=== PATIENT | female | born 1970 | race Two or more races ===

== ENCOUNTER 2022-10-18 07:26 | Outpatient (CLI) | payer OTHER, SELFPAY | END 2022-10-18 07:27 | disposition home or self-care (01) | LOC: NFLDREF 10-20 07:38 | PROVIDERS: PCP Internal Medicine; Referring Provider Internal Medicine; Visit Provider Internal Medicine | DX: Z00.00 Encounter for general adult medical examination without abnormal findings (principal); E03.8 Other specified hypothyroidism; E28.39 Other primary ovarian failure | CPT/HCPCS: 80048; 84439; 84443; 84481 ==

== ENCOUNTER 2023-01-04 15:15 | Outpatient (CLI) | payer OTHER, SELFPAY ==
--- NOTE | 2023-01-04 15:20 | CRLHL7_ITS ---
For Patients: As a result of the Century Cures Act, medical imaging exams and procedure reports are released immediately into your electronic medical record. You may view this report before your referring provider. If you have questions, please contact your health care provider. BILATERAL SCREENING MAMMOGRAM WITH COMPUTER-AIDED DETECTION TECHNIQUE: CC and MLO views were obtained. These mammographic images have been obtained using full-field digital technique. These mammographic images were interpreted with the benefit of computer-aided detection. COMPARISON FILM: 12/08/21, 10/21/20, 09/01/18. FINDINGS: The breasts are heterogeneously dense, which may obscure small masses IMPRESSION: There is no radiographic evidence for malignancy. ASSESSMENT: BI-RADS Category 2: Benign RECOMMENDATION: Routine screening mammogram in 1 year. A lay language report of this examination will be provided to the patient. Peter Lopez M.D. Diagnostic Radiologist [email or web address]/[email or web address] Transcribed: 3:13 p.mikey cope/Dictated by: Peter Lopez MD @ 01/07/2023 8:16:00 AM (Electronically Signed)
== END 2023-01-04 15:16 | disposition home or self-care (01) ==
LOC: MAMMO 15:16
PROVIDERS: PCP Internal Medicine; Visit Provider Internal Medicine
DX: Z12.31 Encounter for screening mammogram for malignant neoplasm of breast (principal); R92.2 Inconclusive mammogram
CPT/HCPCS: 77067

== ENCOUNTER 2023-10-25 09:45 | Outpatient (CLI) | payer OTHER, SELFPAY ==
--- OUTSIDE RECORDS SUMMARY | 2023-10-30 12:51 | XMS_ITS | Clinical Summary ---
Author Name Unknown Organization [place] Address [address] [place] [address] Care Team Providers Care Director Hr Communications Name Role Phone Eva Nelson MD Primary Care Provider [phone] Allergies Active Allergy Reactions Criticality Noted Date Comments Metronidazole Other (See Comments) 01/31/2016 Throat swelling/closing Lansoprazole Rash Low 01/31/2016 No Clinical Screening - See Comments 01/31/2016 Nitroimidazoles Seasonal Allergies Cough 02/24/2008 Throat tightness Medications Medication Sig Dispensed Refills Start Date End Date Status LEVOTHYROXINE SODIUM PO Take 50 mcg by mouth Active LEVOTHYROXINE SODIUM PO Take 75 mcg by mouth Active MEDROXYPROGESTERONE ACETATE PO Take 2.5 mg by mouth Active ESTRADIOL PO Take 1 mg by mouth Active cholecalciferol (D 5000) 5000 units CAPS Take 5,000 Units by mouth 10/29/2014 Active Active Problems No known active problems Social History Tobacco Use Types Packs/Day Years Used Date Smoking Tobacco: Never Smokeless Tobacco: Never Alcohol Use Standard Drinks/Week Comments No 0 (1 standard drink = 0.6 oz pur e alcohol) Adolescent Education Answer Date Record ed Getting School Help Needed Not on file 03/22 Sex and Gender Information Value Date Recorded Sex Assigned at Not on file Gender Identity Not on file Sexual Orientation Not on file Last Filed Vital Signs Vital Sign Reading Time Taken Comments Blood Pressure 112/80 04/14/2018 1:25 PM CDT Pulse - - Temperature - - Respiratory Rate - - Oxygen Saturation - - Inhaled Oxygen Concentration - - Weight 59.9 kg (132 lb) 04/14/2018 1:25 PM CDT Height 154.9 cm (5' 1) 04/14/2018 1:25 PM CDT Body Mass Index 24.94 04/14/2018 1:25 PM CDT Plan of Treatment Not on file Procedures Procedure Name Priority Date/Time Associated Diagnosis Comments ABSTRACT HPV ([facility] EXTERNAL RESULT) Routine 04/12/2016 HCL PAP SMEAR Routine 11/23/1998 1:18 PM CDT Gynecologic Examination from Last 3 Months or Most Recently Relevant to Health Maintenance Results * ABSTRACT HPV-NO CHARGE (04/12/2016) HPV Abstract See Scanned Document [facility] 04/12/2016 [facility]ative [facility] - 04/12/2016 Please abstract the following data from this visit with this patient into the appropriate field in Epic: Pap smear & HPV done on this date: 04/12/16 (approximately), by this group: Giuliana, results were negative, HPV-. Results on Care everywhere. Provider Outside LAB - [facility] EXTERNAL R ESULT [facility] [address] * PAP SMEAR (11/23/1998 1:18 PM CDT) Unlabelled DNR [facility] Biopsy Sent DNR [facility] Source VAG,CERV,E NDOCERV [facility] LMP POST [facility] PARA 3 [facility] 2 [facility] Clinical History DNR [facility] Therapy DNR [facility] Last Pap Diagnosis WITHIN NORMAL LIMITS [facility] PAP Date [id number] [facility] Specimen # DNR [facility] Tissue DNR [facility] Tissue Date DNR [facility] Statement of Adequacy [facility] Comment: SATISFACTORY FOR INTERPRETATION POST MENOPAUSAL PATIENT. ??NO ENDOCERVICAL CELLS SEEN. General Categorization DNR [facility] Descriptive Diagnosis [facility] Comment: WITHIN NORMAL LIMITS ATROPHIC CELL PATTERN Recommendations DNR [facility] DNR 114,,,,,, [facility] DNR DNR [facility] DNR DNR [facility] DNR DNR [facility] . [facility] Comment: ?PAP SMEARS ARE SUBJECT TO BOTH FALSE NEGATIVE AND FALSE ? POSITIVE RESULTS EVIDENCED BY DATA PUBLISHED IN THE ? MEDICAL LITERATURE. ??YOUR PATIENT'S RESULT SHOULD BE ? INTERPRETED IN THIS CONTEXT, TOGETHER WITH THE PATIENT'S ? HISTORY AND CLINICAL FINDINGS. TESTING LOCATION ? THIS TEST [facility] PERFOR[facility] AT [facility] ? [address] [facility]. [id number] ? PHONE NUMBERS FOR CYTOLOGY INQUIRES, INCLUDING SLIDE REQUESTS ? EXT. [phone] ?? EXT. [phone] 11/21/1998 Elsie Ferrari MD LABORATORY [facility] from Last 3 Months or Most Recently Relevant to Health Maintenance Care Teams Director Hr Communications Relationship Specialty Start Date End Date Eva Nelson MD [facility] [address] [place] [address] PCP - General Internal Medicine 04/14/18
--- OUTSIDE RECORDS SUMMARY | 2023-10-30 12:51 | XMS_ITS | Clinical Summary ---
Author Name Unknown Organization [employer] [facility] Address [place], [place] [address] Care Team Providers Care Buffer Nickel Name Role Phone Osorio Gonzalez MD Primary Care Provider U Arik Israel MD Unavailable Diego Diaz MD Unavailable Unavailabl e Allergies Active Allergy Reactions Criticality Noted Date Comments Nitroimidazoles Cough 02/24/2008 Throat tightness Metronidazole Hcl Cough,Throat Swelling/Closing 01/07/2009 Lansoprazole Rash 12/22/2007 Medications Medication Sig Dispensed Refills Start Date End Date Status cycloSPORINE (RESTASIS) 0.05 % ophthalmic emulsion 1 Drop every 12 hours. 0 05/27/2013 Active tretinoin 0.1 % creamIndications:Oth er acne APPLY TO FACE AT BEDTIME FOR ACNE 45 g 3 11/06/2013 Active cholecalciferol (VITAMIN D3) 5,000 unit capsuleIndications:V itamin D deficiency Take 1 capsule by mouth once daily. 90 capsule 3 10/29/2014 Active meclizine (ANTIVERT) 25 mg tabletIndications:Ve rtigo Take 1 tablet by mouth 3 times daily if needed. 30 tablet 1 05/11/2015 Active medroxyPROGESTERone (PROVERA) 2.5 mg tabletIndications:Sy mptomatic menopausal or female climacteric states TAKE ONE TABLET BY MOUTH EVERY DAY 90 tablet 0 02/27/2016 Active estradiol (ESTRACE) 1 mg tabletIndications:Sy mptomatic menopausal or female climacteric states TAKE ONE TABLET BY MOUTH EVERY DAY 90 tablet 0 02/27/2016 Active levothyroxine (SYNTHROID) 75 mcg tabletIndications:Hy pothyroidism, unspecified type TYAJE 1 TABLET ON SATURDAY, SATURDAY, AND SATURDAY. 40 tablet 0 02/27/2016 Active levothyroxine (SYNTHROID) 50 mcg tabletIndications:Hy pothyroidism, unspecified type TAKE 1 TABLET EVERY SATURDAY, SATURDAY, SATURDAY, AND SATURDAY. 50 tablet 0 02/27/2016 Active triamterene-hydrochl orothiazide, 37.5-25 mg, (MAXZIDE-25) 37.5-25 mg tabletIndications:Ed raul TAKE ONE TABLET BY MOUTH EVERY OTHER DAY FOR SWELLING 15 tablet 05/25/2016 Active Active Problems Problem Noted Date Diagnosed Date Premature menopause 02/05/2014 Adjustment disorder with mixed anxiety and depre ssed mood 01/14/2014 Vitamin D deficiency 04/16/2013 Zoster 04/01/2013 Overview: Left vulvar Abnormal head MRI 03/03/2013 Unspecified hypothyroidism 02/25/2013 Pituitary microadenoma 05/10/2009 Overview: On MRI 04/08 Needs recheck in September 2012 Symptomatic menopausal or female climacteric sta orestes 04/21/2009 Benign neoplasm of pituitary gland and craniopharyngeal duct (pouch) 04/21/2009 Osteopenia 04/19/2009 Overview: No significant change from 2010 to 2013 Recheck in 3-5 years Edema 11/09/2008 Esophageal reflux 11/04/2007 Oral aphthae 08/13/2007 Other acne 01/17/2007 Allergic rhinitis, cause unspecified 01/17/2007 Other specified gastritis without mention of hem orrhage 09/12/2006 Resolved Problems Problem Noted Date Diagnosed Date Resolved Date Trigeminal neuralgia 01/17/2007 009 Immunizations Name Administration Dates Next Due MMR 09/02/2015 Td, Preservative Free (age >= 7 Years) 6 Tdap 01/21/2006 Family History Medical History Relation Name Comments Diabetes Brother Cancer Father d 79 yo lungCA/ asbestos Diabetes Father Arthritis Mother B~1930 Hypertension Mother B~1930 b 1930 Psychiatric illness Mother B~1930 depressi on Diabetes Sister 5 Heart Disease Sister 5 48 yo [facility] conge nital heart Dz Asthma Sister 6 also preDM Relation Name Status Comments Brother Alive OK Father (Age 79) Lung cance r (asbestos), DM2 Mother B~1930 Alive Depression and HTN Sister 1 Alive OK Sister 2 Alive [place] Sister 3 Alive [place] Sister 4 Alive OK Sister 5 Sister 6 Social History Tobacco Use Types Packs/Day Years Used Date Smoking Tobacco: Never Smokeless Tobacco: Never Tobacco Cessation:Counseling Given: Yes Alcohol Use Standard Drinks/Week Comments Yes 0.8 (1 standard drink = 0.6 oz p ure alcohol) infrequently Sex and Gender Information Value Date Recorded Sex Assigned at Not on file Gender Identity Not on file Sexual Orientation Not on file Obstetrics History Para Term AB IAB SAB Ectopic Multiple Livin g Live Births 3 3 3 0 0 0 0 0 3 Date Outcome GA Total Labor Labor/2nd/3rd Weight Sex Delivery Anes PTL Celeste A1 A5 Name Cl in Term Term Term Comments x3 Last Filed Vital Signs Vital Sign Reading Time Taken Comments Blood Pressure 112/72 12/13/2015 10:24 AM CDT Pulse 68 12/13/2015 10:24 AM CDT Temperature 37 ??C (98.6 ??F) 12/13/2015 10: 24 AM CDT Respiratory Rate 20 03/26/2013 2:20 PM CDT Oxygen Saturation 97% 12/13/2015 10: 24 AM CDT Inhaled Oxygen Concentration - - Weight 61.1 kg (134 lb 12.8 oz) 016 10:24 AM CDT Height 155.5 cm (5' 1.22) 12/13/2015 1 0:24 AM CDT Body Mass Index 25.29 12/13/2015 10:24 AM CDT Plan of Treatment Health Maintenance Due Date Last Done Comments HIV for age 15-65 02/10/1984 Hepatitis C screening for age 18-79 1987 Colonoscopy through age 75 2014 Mammogram for age 45-75 04/22/2016 04/22/20 15, 04/16/2014, 04/16/2013, Additional history exists Depression screening for age 12+ 08/10/2016 08/10/2015 BMI (ht and wt on same day) for age 18+ 12/12/2016 12/13/2015, 08/10/2015 Zoster (shingles) series for age 50+ (1 of 2) 2019 Lipids for age 45-75 02/16/2020 02/15/2015, 02/05/2014, 04/22/2009, Additional history exists COVID-19 vaccine series (2022-24 season) 2023 Pap test for age 21-65 10/04/2023 , 10/03/2020, 04/12/2016, Additional history exists Influenza for age 50-64 03/01/2024 Tetanus booster 09/01/2025 09/02/2015, 01/21/2006 Tdap Completed 01/21/2006 Pneumococcal series for age 6-64 Aged Out No longer eligible based on patient's age to complete this topic Procedures Procedure Name Priority Date/Time Associated Diagnosis Comments ELECTRIC SOLDERER THIN PREP PAP SCREEN IMAGED Routine 10/03/2020 8:40 AM CDT XR MAMMO BILAT SCREEN FFDM (IA) Routine 04/22/2015 3:50 PM CDT Other screening mammogram LIPID PANEL W REFLEX MEASURED LDL Routine 02/15/2015 9:32 AM CDT Lipid screening from Last 3 Months or Most Recently Relevant to Health Maintenance Results * ELECTRIC SOLDERER THIN PREP PAP SCREEN IMAGED (10/03/2020 8:40 AM CDT) Case Report Gynecologic Cytology Report ? Case: [id number] ? Authorizing Provider: ??Eva Nelson MD ?Collected: ? 10/03/2020 0840 ? Ordering Location: ? [facility] ?Received: ?10/04/2020 0853 ? First Screen: ?Wale Lan ? Pathologist: ? Serina Barajas MD ? Specimen: ?ELECTRIC SOLDERER ThinPrep Vial Screening, Cervical/Vaginal ? 10/12/2020 1:20 PM CDT [facility] [employer] [facility] INTERPRETATION/ RESULT NEGATIVE FOR INTRAEPITHELIAL LESION OR MALIGNANCY (NIL) (none) 10/12/2020 1:20 PM CDT [facility]ATORY R NON-NEOPLASTIC FINDING(S) Reactive cellular changes associated with inflammation/repa ir 10/12/2020 1:20 PM CDT [facility] [employer] [facility] SPECIMEN ADEQUACY Satisfactory for evaluation Endocervical component present 10/12/2020 1:20 PM CDT [facility] HPV REQUEST HPV if ASCUS 10/12/2020 1:20 PM CDT [facility] Date of LMP 10/12/2020 1:20 PM CDT [facility] Comment:2006 Last Pap Date 04/12/2016 10/12/2020 1:20 PM CDT [facility] Last Pap Result 1:20 PM CDT [facility] Comment:Negative Menstrual Status 10/12/2020 1:20 PM CDT [facility] Comment:Menopause Additional Information 10/12/2020 1:20 PM CDT [facility] Comment: Interpreted at [facility], Central Laboratory - [address], [place] [address] Automated Review Successful 10/12/2020 1:20 PM CDT [facility] ENTRAL LABORATORY Comment:Specimen processed s uccessfully by automated composition floor layer device, ThinPrep Imaging System, [employer] Note The pap test is a screening technique, not a diagnostic procedure. It is used primarily to screen for squamous cancers and precursor lesions. Published studies have shown that it is subject to both false negative and false positive results. The pap test should not be used as the sole means to diagnose or exclude pre-malignant and malignant lesions. 10/12/2020 1:20 PM CDT [facility]- EN[facility]AL LAB[facility]ATORY Other (Cervical/Vagina l) 10/03/2020 8:40 AM CDT 10/04/2020 8:53 AM CDT Eva Nelson MD PATHOLOGY/CYTOLOGY Performing Organization Address City/State/RUST Co de Phone Number [facility] [address] [place] [address], [place] * XR MAMMO BILAT SCREEN FFDM (04/22/2015 3:50 PM CDT) Anatomical Region Laterality Modality BREASTS, Breast Left, Breast Right Bilateral Mammography Impressions 04/25/2015 12:24 PM CDT ??There is no radiographic evidence for malignancy. ??Recommend annual mammograms. A lay language report of this examination will be provided to the patient. MAMMOGRAM ASSESSMENT: ??ACR 2 Benign Narrative 04/25/2015 12:24 PM CDT XR MAMMO BILAT SCREEN FFDM [G0202.0] CLINICAL HISTORY: ??This is an asymptomatic 45 y.o. patient. INDICATION FOR EXAM: Mammogram Screening. TECHNIQUE: CC & MLO views were obtained. ??This digital study was evaluated with the assistance of Computer-Aided Detection. COMPARISON FILMS: Yes 04/16/14 [facility] 04/16/13 [facility] FINDINGS: ??Mammographically, the breast tissue is heterogeneously dense, which could obscure detection of small masses. ??No suspicious masses or microcalcifications. ??Benign appearing calcifications within both breasts and Benign appearing asymmetry within left breast. Osorio Gonzalez MD MAMMO * LIPID PANEL W REFLEX MEASURED LDL (02/15/2015 9:32 AM CDT) CHOLESTEROL,TOTAL 189 100 - 199 mg/dL 02/15/2015 10:33 AM CDT [facility] TRIGLYCERIDES 105 <150 mg/dL 02/15/2015 10:33 AM CDT [facility] HDL CHOLESTEROL 57 >40 mg/dL 02/15/2015 10:33 AM CDT [facility] NON-HDL CHOLESTEROL 132 <145 mg/dl 02/15/2015 10:33 AM CDT [facility] CHOL/HDL RATIO 3.32 <4.50 02/15/2015 10:33 AM CDT [facility] LDL CHOLESTEROL 111 <=130 mg/dL 02/15/2015 10:33 AM CDT [facility] PATIENT STATUS FASTING 02/15/2015 10:33 AM CDT [facility] Blood specimen (specimen) BLOOD SPECIMEN / Unknown Venipuncture / Unknown 02/15/2015 9:32 AM CDT 02/15/2015 9:32 AM CDT Osorio Gonzalez MD CHEMISTRY [facility] [address] [place] [address], from Last 3 Months or Most Recently Relevant to Health Maintenance Care Teams Buffer Nickel Relationship Specialty Start Date End Date Osorio Gonzalez MD PCP - General 10/21/05 Arik Fischer MD Otolaryngology Surgery - Otolaryngology 09/06/11 Diego Diaz MD General Surgery Surgery - General 11/27/12
--- OUTSIDE RECORDS SUMMARY | 2023-10-30 12:51 | XMS_ITS | Encounter Summary ---
Author Name Unknown Organization [place] Address [facility] [place] [address] Care Team Providers Care Zone Maintenance Technician Name Role Phone Eva Nelson MD Primary Care Provider Encounter Details Date Type Department Care Team (Late st Contact Info) Description 09/12/2018 Abstract [facility] [place] [address] [phone] Jer Preciado MD [address] [facility] [address] [place], [place] [phone] Social History Tobacco Use Types Packs/Day Years Used Date Smoking Tobacco: Never Smokeless Tobacco: Never Alcohol Use Standard Drinks/Week Comments No 0 (1 standard drink = 0.6 oz pur e alcohol) Sex and Gender Information Value Date Recorded Sex Assigned at Not on file Gender Identity Not on file Sexual Orientation Not on file documented as of this encounter Plan of Treatment Not on file documented as of this encounter Visit Diagnoses Not on filedocumented in this encounter Care Teams Zone Maintenance Technician Relationship Specialty Start Date End Date Eva Nelson MD [facility] [address] [place] [address] PCP - General Internal Medicine 04/14/18 documented as of this encounter
--- OUTSIDE RECORDS SUMMARY | 2023-10-30 12:51 | XMS_ITS | Referral Summary ---
Author Name Unknown Organization [place] Address [address] [place] [address] Care Team Providers Care Aquaculture Director Name Role Phone Eva Nelson MD Primary Care Provider Allergies Active Allergy Reactions Criticality Noted Date [...] Priority Date/Time Associated Diagnosis Comments ABSTRACT HPV ([facility] EXTER[facility] RESULT) Routine 04/12/2016 HCL PAP SMEAR Routine 11/23/1998 1:18 PM CDT Gynecologic Examination from Last 3 Months or Most Recently Relevant to Health Maintenance Results * ABSTRACT HPV-NO CHARGE (04/12/2016) HPV Abstract See Scanned Document [facility] 04/12/2016 Narrative [facility] - 04/12/2016 Please abstract the following data from this visit with this patient into the appropriate field in Epic: Pap smear & HPV done on this date: 04/12/16 (approximately), by this group: Giuliana, results were negative, HPV-. Results on Care everywhere. Provider Outside LAB - [facility] EXTERNAL R ESULT [facility] [employer] [address] * PAP SMEAR (11/23/1998 1:18 PM CDT) Unlabelled DNR [facility] Biopsy Sent DNR [facility] Source VAG,CERV,E NDOCERV [facility] LMP POST [facility] PARA 3 [facility] 2 [facility] Clinical History DNR [facility] Therapy DNR [facility] Last Pap Diagnosis WITHIN NORMAL LIMITS [facility] PAP Date [id number] [facility] Specimen # DNR [facility] Tissue DNR [facility] Tissue Date DNR [facility] Statement of Adequacy [facility] Comment: SATISFACTORY FOR INTERPRETATION POST MENOPAUSAL PATIENT. ??NO ENDOCERVICAL CELLS SEEN. General Categorization DNR [facility] Descriptive Diagnosis [facility] Comment: WITHIN NORMAL LIMITS ATROPHIC CELL PATTERN Recommendations DNR [facility] DNR 114,,,,,, [facility] DNR DNR [facility] DNR DNR [facility] DNR DNR [facility] . [facility] Comment: ?PAP SMEARS ARE SUBJECT TO BOTH FALSE NEGATIVE AND FALSE ? POSITIVE RESULTS EVIDENCED BY DATA PUBLISHED IN THE ? MEDICAL LITERATURE. ??YOUR PATIENT'S RESULT SHOULD BE ? INTERPRETED IN THIS CONTEXT, TOGETHER WITH THE PATIENT'S ? HISTORY AND CLINICAL FINDINGS. TESTING LOCATION ? THIS TEST [facility]FOR[facility] ? [address] [facility]. [address] ? PHONE NUMBERS FOR CYTOLOGY INQUIRES, INCLUDING SLIDE REQUESTS ? EXT. [phone] ?? EXT. [phone] 11/21/1998 Elsie Ferrari MD LABORATORY [facility] from Last 3 Months or Most Recently Relevant to Health Maintenance Care Teams Aquaculture Director Relationship Specialty Start Date End Date Eva Nelson MD [facility] [address] [place] [address] PCP - General Internal Medicine 04/14/18
== END 2023-10-25 09:46 | disposition home or self-care (01) ==
LOC: NFLDREF 10-30 12:49
PROVIDERS: PCP Internal Medicine; Referring Provider Internal Medicine; Visit Provider Internal Medicine
DX: E03.8 Other specified hypothyroidism (principal); Z13.228 Encounter for screening for other metabolic disorders
CPT/HCPCS: 80048; 84439; 84443; 84481

== ENCOUNTER 2023-11-21 12:55 | Outpatient (CLI) | payer OTHER, SELFPAY ==
--- OUTSIDE RECORDS SUMMARY | 2023-11-21 12:57 | XMS_ITS | Referral Summary ---
Author Organization [place] Address [address] [place] [address] Care Team Providers Care Plant Utilities Engineer Name Role Phone Eva Nelson MD Primary [...] CDT Plan of Treatment Not on file Care Teams Plant Utilities Engineer Relationship Specialty Start Date End Date Eva Nelson MD [facility] [address] [place] [address] PCP - General Internal Medicine 04/14/18
--- OUTSIDE RECORDS SUMMARY | 2023-11-21 12:57 | XMS_ITS | Clinical Summary ---
Author Organization [facility] [employer] [facility] Address [place], [place] [address] Care Team Providers Care Engineering Design Manager Name Role Phone Osorio Gonzalez MD Primary Care Provider U Arik Israel MD Unavailable [phone] Diego Diaz MD Unavailable Unavailabl e Allergies [...] Date Resolved Date Trigeminal neuralgia 01/17/2007 009 Encounters Date Type Department Care Team Description 11/15/2023 Lab Requisition [facility] LAB [phone] Regina Kaminski MD from Last 3 Months Immunizations Name Administration Dates Next Due MMR 09/02/2015 Td, Preservative Free (age >= 7 Years) 6 Tdap 01/21/2006 Family History Medical History Relation Name Comments Diabetes Brother Cancer Father d 79 yo lungCA/ asbestos Diabetes Father Arthritis Mother B~193 Hypertension Mother B~1930 b 1930 Psychiatric illness Mother B~1930 depressi on Diabetes Sister 5 Heart Disease Sister 5 48 yo [place] conge nital heart Dz Asthma Sister 6 [...] Procedure Name Priority Date/Time Associated Diagnosis Comments LAB TRACKING EVENT Routine 11/15/2023 9: 30 AM CDT PATH TISSUE EXAM Routine 11/15/2023 9:30 AM CDT MEMBERSHIP SALES MANAGER THIN PREP PAP SCREEN IMAGED Routine 10/03/2020 8:40 AM CDT XR MAMMO BILAT SCREEN FFDM (IA) Routine 04/22/2015 3:50 PM CDT Other screening mammogram LIPID PANEL W REFLEX MEASURED LDL Routine 02/15/2015 9:32 AM CDT Lipid screening from Last 3 Months or Most Recently Relevant to Health Maintenance Results * LAB TRACKING EVENT (11/15/2023 9:30 AM CDT) Other (Other) Client Collect / Unknown 11/15/2023 9:30 AM CDT 11/15/2023 4:37 PM CDT Regina Kaminski MD LAB BILL [facility] LAB[facility]AT[facility]-CENTRAL LABORATORY [address] [place] [address], * PATH TISSUE EXAM (11/15/2023 9:30 AM CDT) Case Report Pathology Report ?Case: [id number] ? Authorizing Provider: ??Regina Ardon ??Collected: ? 11/15/2023 0930 ? M, MD ? Ordering Location: ? [facility] ?Received: ?11/15/2023 1837 ? Pathologist: ? Liz Mar MD ? Specimen: ?Endometrial Biopsy ? 11/18/2023 1:33 PM CDT [facility] LABORATORY-C ENTRAL LABORATORY Final Diagnosis A) ENDOMETRIUM, BIOPSY: 1. Inactive endometrium 2. Negative for chronic endometritis 3. Negative for hyperplasia, atypia, and malignancy 11/18/2023 1:33 PM CDT [facility] LABORATORY-C ENTRAL LABORATORY Clinical Information PMB 11/18/2023 1:33 PM CDT [facility] Gross Description A) Received in formalin, labeled with the patient's name and A, is a 1.1 x 0.5 x 0.1 cm aggregate of pink-ramirez mucosa admixed with clotted blood and mucous. The specimen is entirely submitted in 1 cassette. Jair Stroud 11/15/2023 6:42 PM 11/18/2023 1:33 PM CDT [facility] LABORATORY Microscopic Description The final diagnosis is based on microscopic examination of appropriate sections of all specimens. 11/18/2023 1:33 PM CDT [facility] LABORATORY Additional Information Interpreted at [facility] Laboratory - [address] [place] [address] 11/18/2023 1:33 PM CDT [facility] Other (Endometrial Biopsy) 11/15/2023 9:30 AM CDT 11/15/2023 6:37 PM CDT Regina Kaminski MD PATHOLOGY/ CYTOLOGY [facility] LABORATORY [address] [place] [address], * MEMBERSHIP SALES MANAGER THIN PREP PAP SCREEN IMAGED (10/03/2020 8:40 AM CDT) Case Report Gynecologic Cytology Report ? Case: [id number] ? Authorizing Provider: ??Eva Nelson MD ?Collected: ? 10/03/2020 0840 ? Ordering Location: ? [facility] LAB ?Received: ?10/04/2020 0853 ? First Screen: ?Wale Lan ? Pathologist: ? Serina Barajas MD ? Specimen: ?MEMBERSHIP SALES MANAGER ThinPrep Vial Screening, Cervical/Vaginal ? 10/12/2020 1:20 PM CDT [facility] INTERPRETATION/ RESULT NEGATIVE FOR INTRAEPITHELIAL LESION OR MALIGNANCY (NIL) (none) 10/12/2020 1:20 PM CDT [facility] ENTRAL LABORATORY R NON-NEOPLASTIC FINDING(S) Reactive cellular changes associated with inflammation/repa ir 10/12/2020 1:20 PM CDT [facility] LABORATORY- ENTRAL LABORATORY SPECIMEN ADEQUACY Satisfactory for evaluation Endocervical component present 10/12/2020 1:20 PM CDT [facility]- ENTRAL LABORATORY HPV REQUEST HPV if ASCUS 10/12/2020 1:20 PM CDT [facility] LABORATORY Date of LMP 10/12/2020 1:20 PM CDT [facility] ENTRAL LABORATORY Comment:2006 Last Pap Date 04/12/2016 10/12/2020 1:20 PM CDT [facility]- ENTRAL LABORATORY Last Pap Result 1:20 PM CDT [facility] ENTRAL LABORATORY Comment:Negative Menstrual Status 10/12/2020 1:20 PM CDT [facility]- ENTRNM LABORATORY Comment:Menopause Additional Information 10/12/2020 1:20 PM CDT [facility] ENTRNM LABORATORY Comment: Interpreted at [facility] Laboratory - [address], [place] [address] Automated Review Successful 10/12/2020 1:20 PM CDT [facility] LABORATORY Comment:Specimen processed s uccessfully by automated acquisition marketing manager device, ThinPrep Imaging System, [employer] Note The pap test is a [...] and malignant lesions. 10/12/2020 1:20 PM CDT [facility] [employer] Other (Cervical/Vagina l) 10/03/2020 8:40 AM CDT 10/04/2020 8:53 AM CDT Eva Nelson MD PATHOLOGY/CYTOLOGY [facility] LABORATORY [address] [place] [address], [place] * XR MAMMO BILAT SCREEN FFDM [...] of Computer-Aided Detection. COMPARISON FILMS: Yes 04/16/14 [facility] 04/16/13 [facility] FINDINGS: ??Mammographically, the breast tissue is heterogeneously dense, which could obscure detection of small masses. ??No suspicious masses or microcalcifications. ??Benign appearing calcifications within both breasts and Benign appearing asymmetry within left breast. Osorio Gonzalez MD MAMMO * LIPID PANEL W REFLEX MEASURED LDL (02/15/2015 9:32 AM CDT) CHOLESTEROL,TOTAL 189 100 - 199 mg/dL 02/15/2015 10:[address] [facility] TRIGLYCERIDES 105 <150 mg/dL 02/15/2015 10:[address] [facility] HDL CHOLESTEROL 57 >40 mg/dL 02/15/2015 10:[address] [facility] NON-HDL CHOLESTEROL 132 <145 mg/dl 02/15/2015 10:[address] [facility] CHOL/HDL RATIO 3.32 <4.50 02/15/2015 10:[address] [facility] LDL CHOLESTEROL 111 <=130 mg/dL 02/15/2015 10:[address] [facility] PATIENT STATUS FASTING 02/15/2015 10:[address] [facility] Blood specimen (specimen) BLOOD SPECIMEN / Unknown Venipuncture / Unknown 02/15/2015 9:32 AM CDT 02/15/2015 9:32 AM CDT Osorio Gonzalez MD CHEMISTRY [facility] [address] [place] [address], from Last 3 Months or Most Recently Relevant to Health Maintenance Care Teams Engineering Design Manager Relationship Specialty Start Date End Date Osorio Gonzalez MD PCP - General 10/21/05 Arik Fischer MD Otolaryngology Surgery - Otolaryngology 09/06/11 Diego Diaz MD General Surgery Surgery - General 11/27/12
--- OUTSIDE RECORDS SUMMARY | 2023-11-21 12:57 | XMS_ITS | Clinical Summary ---
Author Organization [employer] Address [address] [place] [address] Care Team Providers Care Jumpbasting Facing Baster Name Role Phone Eva Nelson MD Primary Care Provider [phone] Allergies Active Allergy Reactions Criticality Noted Date [...] of Treatment Not on file Care Teams Jumpbasting Facing Baster Relationship Specialty Start Date End Date Eva Nelson MD [facility] [address] [place] [address] PCP - General Internal Medicine 04/14/18
--- OUTSIDE RECORDS SUMMARY | 2023-11-21 12:57 | XMS_ITS | Encounter Summary ---
Author Organization [facility] Address [address] [place] [address] Care Team Providers Care Security System Administrator Name Role Phone Eva Nelson MD Primary Care Provider Encounter Details Date Type Department Care Team (Late st Contact Info) Description 09/12/2018 Abstract [facility] [place] [address] [phone] Jer Preciado MD [address] [phone] Social History Tobacco Use Types Packs/Day Years [...] on filedocumented in this encounter Care Teams Security System Administrator Relationship Specialty Start Date End Date Eva Nelson MD [facility] [address] [place] [address] PCP - General Internal Medicine 04/14/18 documented as of this encounter
--- NOTE | 2023-11-21 13:00 | CRLHL7_ITS ---
For Patients: As a result of the Century Cures Act, medical imaging exams and procedure reports are released immediately into your electronic medical record. You may view this report before your referring provider. If you have questions, please contact your health care provider. DXA BONE MINERAL DENSITY STUDY Reason for exam: Other specified disorders of bone density and structure, right thigh. History of central hypothyroidism, Current height (in): 61.0. Weight (lb): 134.0. Menopause age: 43. Ethnicity: . 1. Have you had a previous hip or vertebral fracture? No. 2. Have you had any fractures during your adult life which did not result from significant trauma (e.g., auto accident)? No. 3. Did either of your parents have a hip fracture? No. 4. Do you smoke? No. 5. Have you ever taken Glucocorticoids? No. 6. Do you have rheumatoid arthritis? No. 7. Do you have secondary osteoporosis? No. 8. Do you drink 3 or more alcoholic drinks per day? No. 9. Are you being treated for osteoporosis? No. 10. Have you ever taken any of the following medications: Actonel, Evista, Fosamax, Miacalcin, Reclast, Boniva, Forteo, HRT (i.e. estrogen/hormone therapy), Protelos, Prolia, Vitamin D, Calcium, other ??? please specify. ANSWER: Yes, vitamin D, HRT (estrogen/hormone therapy). 11. Do you have any of the following medical conditions: Anorexia or bulimia, asthma or emphysema, end stage renal disease, hyperparathyroidism, any seizure disorders, cancer, inflammatory bowel diseases, hysterectomy, other ??? please specify. ANSWER: No. 12. What was your maximum height (inches)? 61. 13. Do you perform weight bearing exercise regularly? Yes. 14. Do you regularly consume dairy products? No. 15. Do you drink caffeinated beverages? Yes. 16. At what age did your period start? 13. 17. Are you premenopausal? No. 18. How many full term pregnancies have you had? 3. 19. Have you ever missed your period for more than 6 months in a row (not including or menopause)? No. TECHNIQUE: Bone mineral density study was performed using the [employer]. FINDINGS: The results of the study expressed as bone mineral density (BMD) are as follows: Lumbar spine L1 to L4: BMD: 0.997 g/cm2. T-score: -0.5. Z-score: 0.6. Neck Left: BMD: 0.763 g/cm2. T-score: -0.8. Z-score: 0.1. Right: BMD: 0.775 g/cm2. T-score: -0.7. Z-score: 0.2. Total Left: BMD: 1.033 g/cm2. T-score: 0.7. Z-score: 1.3. Right: BMD: 1.051 g/cm2. T-score: 0.9. Z-score: 1.4. IMPRESSION: Normal bone density. *Comparison exams done prior to 11/2019 were performed on different unit, [employer]. COMPARISON: Compared with scan of 09/01/2018, the bone mineral density has decreased by 2.2 percent at the spine and increased by 4.7 percent at the hip. Peter Lopez M.D. Diagnostic Radiologist [employer] [facility] [email or web address] MAYO/[email or web address] / be/Dictated by: Peter Lopez MD @ 11/22/2023 8:52:00 AM (Electronically Signed)
[2023-11-24 23:01] LABS: Sex Hormone Binding Globulin 158 nmol/L (17-125); Testosterone, Free LC-MS/MS 0.5 pg/mL (0.6-3.8); Testosterone, LC-MS/MS 9 ng/dL (9-55)
[2023-11-27 08:42] LABS: Progesterone, HPLC-MS/MS <0.10 ng/mL
== END 2023-11-21 12:56 | disposition home or self-care (01) ==
LOC: RAD 12:55
PROVIDERS: Obstetrics & Gynecology; PCP Internal Medicine; Visit Provider Internal Medicine
DX: M85.851 Other specified disorders of bone density and structure, right thigh (principal); E28.39 Other primary ovarian failure; N95.0 Postmenopausal bleeding
CPT/HCPCS: 36415; 77080; 84144; 84270; 84402; 84403

== ENCOUNTER 2023-12-02 14:38 | Outpatient (CLI) | payer OTHER, SELFPAY ==
--- OUTSIDE RECORDS SUMMARY | 2023-12-02 14:39 | XMS_ITS | Clinical Summary ---
Author Organization [facility] Address [address] [place] [address] Care Team Providers Care Cardiac Rehabilitation Specialist Name Role Phone Eva Nelson MD Primary [...] of Treatment Not on file Care Teams Cardiac Rehabilitation Specialist Relationship Specialty Start Date End Date Eva Nelson MD [facility] [address] [place] [address] PCP - General Internal Medicine 04/14/18
--- OUTSIDE RECORDS SUMMARY | 2023-12-02 14:40 | XMS_ITS | Encounter Summary ---
Author Organization [facility] Address [address] [place] [address] Care Team Providers Care Credit Assessment Analyst Name Role Phone Eva Nelson MD Primary Care Provider Encounter Details Date Type Department Care Team (Late st Contact Info) Description 09/12/2018 Abstract [facility] [place] [address] [phone] Jer Preciado MD [address] [phone] Social History Tobacco Use Types Packs/Day Years [...] on filedocumented in this encounter Care Teams Credit Assessment Analyst Relationship Specialty Start Date End Date Eva Nelson MD [facility] [address] [place] [address] PCP - General Internal Medicine 04/14/18 documented as of this encounter
--- OUTSIDE RECORDS SUMMARY | 2023-12-02 14:40 | XMS_ITS | Referral Summary ---
Author Organization [place] Address [address] [place] [address] Care Team Providers Care High Density Talc Coater Operator Name Role Phone Eva Nelson MD Primary [...] of Treatment Not on file Care Teams High Density Talc Coater Operator Relationship Specialty Start Date End Date Eva Nelson MD [facility] [address] [place] [address] PCP - General Internal Medicine 04/14/18
--- OUTSIDE RECORDS SUMMARY | 2023-12-02 14:40 | XMS_ITS | Clinical Summary ---
Author Organization [employer] [facility] Address [place], [place] [address] Care Team Providers Care Dictating Transcribing Machine Servicer Name Role Phone Osorio Gonzalez MD Primary Care Provider U Arik Israel MD Unavailable [phone] Diego Diaz MD Unavailable Unavailabl e Allergies [...] Department Care Team Description 11/15/2023 Lab Requisition [facility] C[facility]TRAL LAB [phone] Regina Kaminski MD from Last 3 Months [...] 5 Heart Disease Sister 5 48 yo [place] conge nital heart Dz Asthma Sister 6 [...] TISSUE EXAM Routine 11/15/2023 9:30 AM CDT MATERIAL CREW SUPERVISOR THIN PREP PAP SCREEN IMAGED Routine 10/03/2020 [...] Regina Kaminski MD LAB BILL [facility] LABORATORY-CENTRAL LABORATORY [address] [place] [address], * PATH TISSUE EXAM (11/15/2023 9:30 AM CDT) Case Report Pathology Report ?Case: [id number] ? Authorizing Provider: ??Regina Ardon ??Collected: ? 11/15/2023 0930 ? M, MD ? Ordering Location: ? [facility] ?Received: ?11/15/2023 1837 ? Pathologist: ? Liz Mar MD ? Specimen: ?Endometrial Biopsy ? 11/18/2023 1:33 PM CDT [facility] LABORATORY-C ENTRAL LABORATORY Final Diagnosis A) ENDOMETRIUM, BIOPSY: 1. Inactive endometrium 2. Negative for chronic endometritis 3. Negative for hyperplasia, atypia, and malignancy 11/18/2023 1:33 PM CDT [facility] LABORATORY-C ENTRAL LABORATORY Clinical Information PMB 11/18/2023 1:33 PM CDT [facility] LABORATORY Gross Description A) Received in formalin, labeled with the patient's name and A, is a 1.1 x 0.5 x 0.1 cm aggregate of pink-ramirez mucosa admixed with clotted blood and mucous. The specimen is entirely submitted in 1 cassette. Jair Stroud 11/15/2023 6:42 PM 11/18/2023 1:33 PM CDT [facility] Microscopic Description The final diagnosis is based on microscopic examination of appropriate sections of all specimens. 11/18/2023 1:33 PM CDT [facility] Additional Information Interpreted at [facility] Laboratory - [address] [place] [address] 11/18/2023 1:33 PM CDT [facility] Other (Endometrial Biopsy) 11/15/2023 9:30 AM CDT 11/15/2023 6:37 PM CDT Regina Kaminski MD PATHOLOGY/ CYTOLOGY [facility] LABORATORY [address] [place] [address], * MATERIAL CREW SUPERVISOR THIN PREP PAP SCREEN IMAGED (10/03/2020 8:40 AM CDT) Case Report Gynecologic Cytology Report ? Case: [id number] ? Authorizing Provider: ??Eva Nelson MD ?Collected: ? 10/03/2020 0840 ? Ordering Location: ? [facility] LAB ?Received: ?10/04/2020 0853 ? First Screen: ?Wale Lan ? Pathologist: ? Serina Barajas MD ? Specimen: ?MATERIAL CREW SUPERVISOR ThinPrep Vial Screening, Cervical/Vaginal ? 10/12/2020 1:20 PM CDT [facility]- ENTRAL LABORATORY INTERPRETATION/ RESULT NEGATIVE FOR INTRAEPITHELIAL LESION OR MALIGNANCY (NIL) (none) 10/12/2020 1:20 PM CDT [facility] ENTRAL LABORATORY R NON-NEOPLASTIC FINDING(S) Reactive cellular changes associated with inflammation/repa ir 10/12/2020 1:20 PM CDT [facility] LAB[facility]AT[facility]- ENTRAL LABORATORY SPECIMEN ADEQUACY Satisfactory for evaluation Endocervical component present 10/12/2020 1:20 PM CDT [facility]- ENTRAL LABORATORY HPV REQUEST HPV if ASCUS 10/12/2020 1:20 PM CDT [facility] ENTRAL LABORATORY Date of LMP 10/12/2020 1:20 PM CDT [facility] ENTRAL LABORATORY Comment:2006 Last Pap Date 04/12/2016 10/12/2020 1:20 PM CDT [facility]- ENTRAL LABORATORY Last Pap Result 1:20 PM CDT [facility] ENTRAL LABORATORY Comment:Negative Menstrual Status 10/12/2020 1:20 PM CDT [facility] LABORATORY Comment:Menopause Additional Information 10/12/2020 1:20 PM CDT [facility]FL LABORATORY Comment: Interpreted at [facility] Laboratory - [address], [place] [address] Automated Review Successful 10/12/2020 1:20 PM CDT [facility] Comment:Specimen processed s uccessfully by automated magazine writer device, ThinPrep Imaging System, [employer] Note The pap test is a [...] and malignant lesions. 10/12/2020 1:20 PM CDT [facility] Other (Cervical/Vagina l) 10/03/2020 8:40 AM CDT 10/04/2020 8:53 AM CDT Eva Nelson MD PATHOLOGY/CYTOLOGY [facility] LABORATORY [address] [place] [address], [place] * XR MAMMO BILAT SCREEN FFDM [...] of Computer-Aided Detection. COMPARISON FILMS: Yes 04/16/14 [facility] 04/16/13 [facility] FINDINGS: ??Mammographically, the breast tissue is heterogeneously [...] Gonzalez MD CHEMISTRY [facility] [address] [place] [address], from Last 3 Months or Most Recently Relevant to Health Maintenance Care Teams Dictating Transcribing Machine Servicer Relationship Specialty Start Date End Date Osorio Gonzalez MD PCP - General 10/21/05 Arik Fischer MD Otolaryngology Surgery - Otolaryngology 09/06/11 Diego Diaz MD General Surgery Surgery - General 11/27/12
--- NOTE | 2023-12-02 15:00 | CRLHL7_ITS ---
For Patients: As a result of the Century Cures Act, medical imaging exams and procedure reports are released immediately into your electronic medical record. You may view this report before your referring provider. If you have questions, please contact your health care provider. INDICATION: Postmenopausal bleeding. TECHNIQUE: Transabdominal and transvaginal scanning was performed. Transvaginal scanning was performed to optimally evaluate the endometrium and adnexa. COMPARISON: None. FINDINGS: The postmenopausal uterus is normal in size and shape. The uterus measures 8.0 x 3.6 x 4.4 cm. No myometrial mass is evident. The endometrial stripe is thickened to 8 mm. Neither ovary is visualized. No adnexal mass is evident. No free fluid is demonstrated. IMPRESSION: Thickened postmenopausal endometrial stripe at 8 mm. Dictated by Sachin Ortega MD @ 12/03/2023 8:50:11 PM (Electronically Signed)
== END 2023-12-02 14:39 | disposition home or self-care (01) ==
LOC: US 14:38
PROVIDERS: PCP Internal Medicine; Visit Provider Obstetrics & Gynecology
DX: N95.0 Postmenopausal bleeding (principal); R93.89 Abnormal findings on diagnostic imaging of other specified body structures
CPT/HCPCS: 76830; 76856; 97110; 97140; 97161

== ENCOUNTER 2024-01-17 13:53 | Outpatient (CLI) | payer OTHER, SELFPAY ==
--- OUTSIDE RECORDS SUMMARY | 2024-01-17 13:55 | XMS_ITS | Encounter Summary ---
Author Organization [facility] Address [address] [place] [address] Care Team Providers Care Second Floor Operator Name Role Phone Eva Nelson MD Primary Care Provider Encounter Details Date Type Department Care Team (Late st Contact Info) Description 09/12/2018 Abstract [facility] [place] [address] [phone] Jer Preciado MD [address] [id number] Social History Tobacco Use Types Packs/Day Years [...] on filedocumented in this encounter Care Teams Second Floor Operator Relationship Specialty Start Date End Date Eva Nelson MD [facility] [address] [place] [address] PCP - General Internal Medicine 04/14/18 documented as of this encounter
--- OUTSIDE RECORDS SUMMARY | 2024-01-17 13:55 | XMS_ITS | Clinical Summary ---
Author Organization [facility] Address [place], [place] [address] Care Team Providers Care Boiler House Mechanic Name Role Phone Osorio Gonzalez MD Primary Care Provider U Arik Israel MD Unavailable [phone] Diego Diaz MD Unavailable Unavailabl e Allergies [...] Department Care Team Description 11/15/2023 Lab Requisition [facility] [phone] Regina Kaminski MD from Last 3 Months [...] 5 Heart Disease Sister 5 48 yo [place] conge nital heart Dz Asthma Sister 6 [...] Outcome GA Total Labor Labor/2nd/3rd Weight Sex Type Anes PTL Celeste A1 A5 Name Clin Term Term Term Comments x3 Last Filed [...] TISSUE EXAM Routine 11/15/2023 9:30 AM CDT HOUSEKEEPING SUPERVISOR THIN PREP PAP SCREEN IMAGED Routine [...] Regina Kaminski MD LAB BILL O ROLF [facility]EN[facility]AL LABORATORY [address] [place] [address], * PATH TISSUE EXAM (11/15/2023 9:30 AM CDT) Case Report Pathology Report ?Case: [id number] ? Authorizing Provider: ??Regina Ardon ??Collected: ? 11/15/2023 0930 ? M, MD ? Ordering Location: ? [facility] ?Received: ?11/15/2023 1837 ? Pathologist: ? Liz Mar MD ? Specimen: ?Endometrial Biopsy ? 11/18/2023 1:33 PM CDT [facility] LABORATORY-C ENTRAL LABORATORY Final Diagnosis A) ENDOMETRIUM, BIOPSY: 1. Inactive endometrium 2. Negative for chronic endometritis 3. Negative for hyperplasia, atypia, and malignancy 11/18/2023 1:33 PM CDT [facility] LABORATORY-C ENTRAL LABORATORY Clinical Information PMB 11/18/2023 1:33 PM CDT [facility] Gross Description A) Received in formalin, labeled with the patient's name and A, is a 1.1 x 0.5 x 0.1 cm aggregate of pink-ramirez mucosa admixed with clotted blood and mucous. The specimen is entirely submitted in 1 cassette. Jair Stroud 11/15/2023 6:42 PM 11/18/2023 1:33 PM CDT [facility] Microscopic Description The final diagnosis is based on microscopic examination of appropriate sections of all specimens. 11/18/2023 1:33 PM CDT [facility] Additional Information Interpreted at [facility] - [address] [place] [address] 11/18/2023 1:33 PM CDT [facility] Other (Endometrial Biopsy) 11/15/2023 9:30 AM CDT 11/15/2023 6:37 PM CDT Regina Kaminski MD PATHOLOGY/ CYTOLOGY [facility] [address] [place] [address], * HOUSEKEEPING SUPERVISOR THIN PREP PAP SCREEN IMAGED (10/03/2020 8:40 AM CDT) Case Report Gynecologic Cytology Report ? Case: [id number] ? Authorizing Provider: ??Eva Nelson MD ?Collected: ? 10/03/2020 0840 ? Ordering Location: ? [facility] ?Received: ?10/04/2020 0853 ? First Screen: ?Wale Lan ? Pathologist: ? Serina Barajas MD ? Specimen: ?HOUSEKEEPING SUPERVISOR ThinPrep Vial Screening, Cervical/Vaginal ? 10/12/2020 1:20 PM [facility]T [facility]- ENTRAL [facility] INTERPRETATION/ RESULT NEGATIVE FOR INTRAEPITHELIAL LESION OR MALIGNANCY (NIL) (none) 10/12/2020 1:20 PM CDT [facility] ENTRAL LABORATORY R NON-NEOPLASTIC FINDING(S) Reactive cellular changes associated with inflammation/repa ir 10/12/2020 1:20 PM CDT [facility] LABORATORY- ENTRAL LABORATORY SPECIMEN ADEQUACY Satisfactory for evaluation Endocervical component present 10/12/2020 1:20 PM CDT [facility] LABORATORY-C ENTRAL LABORATORY HPV REQUEST HPV if ASCUS 10/12/2020 1:20 PM CDT [facility] LABORATORY-C ENTRAL LABORATORY Date of LMP 10/12/2020 1:20 PM CDT [facility] ENTRAL LABORATORY Comment:2006 Last Pap Date 04/12/2016 10/12/2020 1:20 PM CDT [facility]- ENTRAL LABORATORY Last Pap Result 1:20 PM CDT [facility] ENTRAL LABORATORY Comment:Negative Menstrual Status 10/12/2020 1:20 PM CDT [facility] Comment:Menopause Additional Information 10/12/2020 1:20 PM CDT [facility] Comment: Interpreted at [facility] - [address], [place] [address] Automated Review Successful 10/12/2020 1:20 PM CDT [facility] Comment:Specimen processed s uccessfully by automated chief of hospital medicine device, ThinPrep Imaging System, [employer] Note The pap test is a [...] and malignant lesions. 10/12/2020 1:20 PM CDT [facility] Other (Cervical/Vagina l) 10/03/2020 8:40 AM CDT 10/04/2020 8:53 AM CDT Eva Nelson MD PATHOLOGY/CYTOLOGY [facility] [address] [place] [address], [place] * XR MAMMO BILAT SCREEN FFDM [...] of Computer-Aided Detection. COMPARISON FILMS: Yes 04/16/14 [facility] 04/16/13 [facility] FINDINGS: ??Mammographically, the breast tissue is heterogeneously dense, which could obscure detection of small masses. ??No suspicious masses or microcalcifications. ??Benign appearing calcifications within both breasts and Benign appearing asymmetry within left breast. Osorio Gonzalez MD MAMMO * LIPID PANEL W REFLEX MEASURED LDL (02/15/2015 9:32 AM CDT) CHOLESTEROL,TOTAL 189 100 - 199 mg/dL 02/15/2015 10:[address] [facility] TRIGLYCERIDES 105 <150 mg/dL 02/15/2015 10:[address] [facility] HDL CHOLESTEROL 57 >40 mg/dL 02/15/2015 10:[address] [facility] NON-HDL CHOLESTEROL 132 <145 mg/dl 02/15/2015 10:[address] [facility] CHOL/HDL RATIO 3.32 <4.50 02/15/2015 10:[address] [facility] LDL CHOLESTEROL 111 <=130 mg/dL 02/15/2015 10:[address] [facility] PATIENT STATUS FASTING 02/15/2015 10:[address] [facility] Blood specimen (specimen) BLOOD SPECIMEN / Unknown Venipuncture / Unknown 02/15/2015 9:32 AM CDT 02/15/2015 9:32 AM CDT Osorio Gonzalez MD CHEMISTRY [facility] [address] [place] [address], from Last 3 Months or Most Recently Relevant to Health Maintenance Care Teams Boiler House Mechanic Relationship Specialty Start Date End Date Osorio Gonzalez MD PCP - General 10/21/05 Arik Fischer MD Otolaryngology Surgery - Otolaryngology 09/06/11 Diego Diaz MD General Surgery Surgery - General 11/27/12
--- OUTSIDE RECORDS SUMMARY | 2024-01-17 13:55 | XMS_ITS | Referral Summary ---
Author Organization [place] [facility] Address [address] [place] [address] Care Team Providers Care Lead Designer Name Role Phone Eva Nelson MD Primary Care Provider [phone] Allergies Active Allergy Reactions Criticality Noted Date [...] of Treatment Not on file Care Teams Lead Designer Relationship Specialty Start Date End Date Eva Nelson MD [facility] [address] [place] [address] PCP - General Internal Medicine 04/14/18
--- OUTSIDE RECORDS SUMMARY | 2024-01-17 13:55 | XMS_ITS | Clinical Summary ---
Author Organization [facility] Address [address] [place] [address] Care Team Providers Care Cleaner Industrial Name Role Phone Eva Nelson MD Primary Care Provider [phone] Allergies Active Allergy Reactions Criticality Noted Date [...] of Treatment Not on file Care Teams Cleaner Industrial Relationship Specialty Start Date End Date Eva Nelosn MD [facility] [address] [place] [address] PCP - General Internal Medicine 04/14/18
--- NOTE | 2024-01-17 14:00 | CRLHL7_ITS ---
For Patients: As a result of the Century Cures Act, medical imaging exams and procedure reports are released immediately into your electronic medical record. You may view this report before your referring provider. If you have questions, please contact your health care provider. BILATERAL SCREENING MAMMOGRAM WITH COMPUTER-AIDED DETECTION AND TOMOSYNTHESIS TECHNIQUE: CC and MLO views were obtained. These mammographic images have been obtained using full-field digital technique. These mammographic images were interpreted with the benefit of computer-aided detection. Breast Tomosynthesis was used in this interpretation. COMPARISON FILM: 01/04/23, 12/08/21, 10/21/20. FINDINGS: The breasts are heterogeneously dense, which may obscure small masses. IMPRESSION: There is no radiographic evidence for malignancy. ASSESSMENT: BI-RADS Category 1: Negative RECOMMENDATION: Routine screening mammogram in 1 year. A lay language report of this examination will be provided to the patient. Peter Lopez M.D. Diagnostic Radiologist [email or web address] SP/Dictated by: Peter Lopez MD @ 01/20/2024 10:02:00 AM (Electronically Signed)
== END 2024-01-17 13:54 | disposition home or self-care (01) ==
LOC: MAMMO 13:53
PROVIDERS: PCP Internal Medicine; Visit Provider Internal Medicine
DX: Z12.31 Encounter for screening mammogram for malignant neoplasm of breast (principal); R92.2 Inconclusive mammogram
CPT/HCPCS: 77063; 77067

== ENCOUNTER 2024-02-21 13:00 | Outpatient (RCR) | payer OTHER, SELFPAY | END 2024-06-19 09:22 | disposition home or self-care (01) | PROVIDERS: PCP Internal Medicine; Visit Provider Internal Medicine | DX: M25.562 Pain in left knee (principal); M54.2 Cervicalgia; M79.601 Pain in right arm; Z74.09 Other reduced mobility; M25.521 Pain in right elbow; M62.9 Disorder of muscle, unspecified; R53.1 Weakness; Z51.89 Encounter for other specified aftercare | CPT/HCPCS: 97012; 97110; 97140; 97161 ==

== ENCOUNTER 2024-06-29 08:15 | Outpatient (RCR) | payer OTHER, SELFPAY ==
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
== END 2024-10-27 23:59 | disposition home or self-care (01) ==
PROVIDERS: PCP Internal Medicine; Visit Provider Internal Medicine
DX: M79.641 Pain in right hand (principal); Z51.89 Encounter for other specified aftercare
CPT/HCPCS: 97110; 97140; 97162; 97165; X5282

== ENCOUNTER 2024-07-02 07:55 | Day surgery (SDC) | payer OTHER, SELFPAY ==
--- OUTSIDE RECORDS SUMMARY | 2024-07-02 07:59 | XMS_ITS | Clinical Summary ---
Author Organization [facility] Address [place], [place] [address] Care Team Providers Care Project Facilitator Name Role Phone Osorio Gonzalez MD Primary Care Provider U Arik Israel MD Unavailable [phone] Diego Diaz MD Unavailable Unavailabl e Allergies Active Allergy Reactions Criticality Noted Date Comments Nitroimidazoles Cough 02/24/2008 Throat tightness Metronidazole Hcl Cough,Throat Swelling/Closing 01/07/2009 Lansoprazole Rash 12/22/2007 Medications cycloSPORINE (RESTASIS) 0.05 % ophthalmic emulsion 1 Drop every 12 hours. 0 3 Active tretinoin 0.1 % creamIndications :Other acne APPLY TO FACE AT BEDTIME FOR ACNE 45 g 3 4 Active cholecalciferol (VITAMIN D3) 5,000 unit capsuleIndicatio ns:Vitamin D deficiency Take 1 capsule by mouth once daily. 90 capsule 3 5 Active meclizine (ANTIVERT) 25 mg tabletIndication s:Vertigo Take 1 tablet by mouth 3 times daily if needed. 30 tablet 1 5 Active medroxyPROGESTER one (PROVERA) 2.5 mg tabletIndication s:Symptomatic menopausal or female climacteric states TAKE ONE TABLET BY MOUTH EVERY DAY 90 tablet 0 6 Active estradiol (ESTRACE) 1 mg tabletIndication s:Symptomatic menopausal or female climacteric states TAKE ONE TABLET BY MOUTH EVERY DAY 90 tablet 0 6 Active levothyroxine (SYNTHROID) 75 mcg tabletIndication s:Hypothyroidism , unspecified type TYAJE 1 TABLET ON SATURDAY, SATURDAY, AND SATURDAY. 40 tablet 0 6 Active levothyroxine (SYNTHROID) 50 mcg tabletIndication s:Hypothyroidism , unspecified type TAKE 1 TABLET EVERY SATURDAY, SATURDAY, SATURDAY, AND SATURDAY. 50 tablet 0 6 Active triamterene-hydr ochlorothiazide, 37.5-25 mg, (MAXZIDE-25) 37.5-25 mg tabletIndication s:Edema TAKE ONE TABLET BY MOUTH EVERY OTHER DAY FOR SWELLING 15 tablet 6 Active Active Problems Problem Noted Date Diagnosed Date Premature menopause 02/05/2014 Adjustment disorder with mixed anxiety and depre ssed mood 01/14/2014 Vitamin D deficiency 04/16/2013 Zoster 04/01/2013 Overview (04/01/2013): Left vulvar Abnormal head MRI 03/03/2013 Unspecified hypothyroidism 02/25/2013 Pituitary microadenoma 05/10/2009 Overview (10/02/2011): On MRI 04/08 Needs recheck in September 2012 Symptomatic menopausal or female climacteric sta orestes 04/21/2009 Benign neoplasm of pituitary gland and craniopharyngeal duct (pouch) 04/21/2009 Osteopenia 04/19/2009 Overview (03/03/2014): No significant change from 2010 to 2013 [...] 5 Heart Disease Sister 5 48 yo [place] conge nital heart Dz Asthma Sister 6 [...] = 0.6 oz p ure alcohol) infrequently Comments No Sex and Gender Information Value Date Recorded Sex Assigned at Not on file Legal Sex 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 Gender Identity Not on file Sexual Orientation Not on file 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 Not on file Not on file Not on file Obstetrics History Para Term [...] 67 12/13/2015 10:24 AM CDT Temperature 37 C (98.6 F) 12/13/2015 10:24 AM CDT Respiratory Rate 20 03/26/2013 2:20 [...] 02/16/2020 02/15/2015, 02/05/2014, 04/22/2009, Additional history exists Pap test for age 21-65 10/04/2023 , 10/03/2020, 04/12/2016, Additional history exists COVID-19 vaccine series ( - 2023- season) 2024 Influenza for age 50-64 03/01/2024 Tetanus booster 09/01/2025 09/02/2015, 01/21/2006 Tdap Completed 01/21/2006 Pneumococcal series for age 6-49 Aged Out No longer eligible based on patient's age to complete this topic Procedures Procedure Name Priority Date/Time Associated Diagnosis Comments DIRECTOR OF FINANCIAL REPORTING THIN PREP PAP SCREEN IMAGED Routine 10/03/2020 8:40 AM CDT XR MAMMO BILAT SCREEN FFDM (IA) Routine 04/22/2015 3:50 PM CDT Other screening mammogram LIPID PANEL W REFLEX MEASURED LDL Routine 02/15/2015 9:32 AM CDT Lipid screening from Last 3 Months or Most Recently Relevant to Health Maintenance Results * DIRECTOR OF FINANCIAL REPORTING THIN PREP PAP SCREEN IMAGED (10/03/2020 8:40 AM CDT) Case Report Gynecologic Cytology Report Case: [id number] Authorizing Provider: Eva Nelson MD Collected: 10/03/2020 0840 Ordering Location: [facility] Received: 10/04/2020 0853 First Screen: [place] Lan Pathologist: Serina Barajas MD Specimen: DIRECTOR OF FINANCIAL REPORTING ThinPrep Vial Screening, Cervical/Vaginal 10/12/2020 1:20 PM CDT [facility] INTERPRETATION/ RESULT NEGATIVE FOR INTRAEPITHELIAL LESION OR MALIGNANCY (NIL) (none) 10/12/2020 1:20 PM CDT [facility] R NON-NEOPLASTIC FINDING(S) Reactive cellular changes associated with inflammation/repa ir 10/12/2020 1:20 PM CDT [facility] SPECIMEN ADEQUACY Satisfactory for evaluation Endocervical component present 10/12/2020 1:20 PM CDT [facility] HPV REQUEST HPV if ASCUS 10/12/2020 1:20 PM CDT [facility] Date of LMP 10/12/2020 1:20 PM CDT [facility] Comment:2005 Last Pap Date 04/12/2016 10/12/2020 1:20 PM CDT [facility] Last Pap Result 1:20 PM CDT [facility] Comment:Negative Menstrual Status 10/12/2020 1:20 PM CDT [facility] Comment:Menopause Additional Information 10/12/2020 1:20 PM CDT [facility] Comment: Interpreted at [facility] - [address], [place] [address] Automated Review Successful 10/12/2020 1:20 PM CDT [facility] Comment:Specimen processed s uccessfully by automated wood window and door craftsman device, ThinPrep Imaging System, [employer] Note The pap test is a [...] and malignant lesions. 10/12/2020 1:20 PM CDT [facility] Other (Cervical/Vagina l) 10/03/2020 8:40 AM CDT 10/04/2020 8:53 AM CDT us Eva Nelson MD PATHOLOGY/CYTOLOGY Final R esult [facility] [address] [place] [address], [place] * XR MAMMO BILAT SCREEN FFDM (04/22/2015 3:50 PM CDT) Anatomical Region Laterality Modality BREASTS, Breast Left, Breast Right Bilateral Mammography Impressions 04/25/2015 12:24 PM CDT There is no radiographic evidence for malignancy. Recommend annual mammograms. A lay language report of this examination will be provided to the patient. MAMMOGRAM ASSESSMENT: ACR 2 Benign Narrative 04/25/2015 12:24 PM CDT XR MAMMO BILAT SCREEN FFDM [G0202.0] CLINICAL HISTORY: This is an asymptomatic 45 y.o. patient. INDICATION FOR EXAM: Mammogram Screening. TECHNIQUE: CC & MLO views were obtained. This digital study was evaluated with the assistance of Computer-Aided Detection. COMPARISON FILMS: Yes 04/16/14 [facility] 04/16/13 [facility] FINDINGS: Mammographically, the breast tissue is heterogeneously dense, which could obscure detection of small masses. No suspicious masses or microcalcifications. Benign appearing calcifications within both breasts and Benign appearing asymmetry within left breast. us Osorio Gonzalez MD MAMMO Final Re sult * LIPID PANEL W REFLEX MEASURED LDL (02/15/2015 9:32 AM CDT) CHOLESTEROL,TOTAL 189 100 - 199 mg/dL 02/15/2015 10:33 AM CDT [facility] TRIGLYCERIDES 105 <150 mg/dL 02/15/2015 10:33 AM CDT [facility] HDL CHOLESTEROL 57 >40 mg/dL 02/15/2015 10:33 AM CDT [facility] NON-HDL CHOLESTEROL 132 <145 mg/dl 02/15/2015 10:33 AM CDT [facility] CHOL/HDL RATIO 3.32 <4.50 02/15/2015 10:33 AM CDT [facility] LDL CHOLESTEROL 111 <=130 mg/dL 02/15/2015 10:33 AM CDT [facility] PATIENT STATUS FASTING 02/15/2015 10:33 AM CDT [facility] Blood specimen (specimen) BLOOD SPECIMEN / Unknown Venipuncture / Unknown 02/15/2015 9:32 AM CDT 02/15/2015 9:32 AM CDT Osorio Gonzalez MD CHEMISTRY Final Re sult [facility] [address] [place] [address], [place] [phone] from Last 3 Months or Most Recently Relevant to Health Maintenance Insurance [facility] [employer] Care Teams Project Facilitator Relationship Specialty Start Date End Date Osorio Gonzalez MD PCP - General 10/21/05 Arik Fischer MD Otolaryngology Surgery - Otolaryngology 09/06/11 Diego Diaz MD General Surgery Surgery - General 11/27/12
--- OUTSIDE RECORDS SUMMARY | 2024-07-02 07:59 | XMS_ITS | Clinical Summary ---
Author Organization [facility] Address [address] [place] [id number] Care Team Providers Care Food Consultant Name Role Phone Eva Nelson MD Primary Care Provider [phone] Allergies Active Allergy Reactions Criticality Noted Date Comments Metronidazole Other (See Comments) 01/31/2016 Throat swelling/closing Lansoprazole Rash Low 01/31/2016 No Clinical Screening - See Comments 01/31/2016 Nitroimidazoles Seasonal Allergies Cough 02/24/2008 Throat tightness Medications LEVOTHYROXINE SODIUM PO Take 50 mcg by mouth Active LEVOTHYROXINE SODIUM PO Take 75 mcg by mouth Active MEDROXYPROGESTER ONE ACETATE PO Take 2.5 mg by mouth [...] School Help Needed Not on file 03/22 Comments No Sex and Gender Information Value Date Recorded Sex Assigned at Not on file Legal Sex Female 2:28 PM CDT Gender Identity Not on file Sexual Orientation [...] CDT Plan of Treatment Not on file Insurance [employer] Care Teams Food Consultant Relationship Specialty Start Date End Date Eva Nelson MD [facility] [address] [place] [address] PCP - General Internal Medicine 04/14/18
--- OUTSIDE RECORDS SUMMARY | 2024-07-02 07:59 | XMS_ITS | Referral Summary ---
Author Organization [facility] Address [address] [place] [address] Care Team Providers Care Engineering Associate Name Role Phone Eva Nelson MD Primary [...] Not on file Insurance [employer] Care Teams Engineering Associate Relationship Specialty Start Date End Date Eva Nelson MD [facility] [address] [place] [address] PCP - General Internal Medicine 04/14/18
--- OUTSIDE RECORDS SUMMARY | 2024-07-02 07:59 | XMS_ITS | Continuity of Care Document ---
Author Name [facility] Address Unknown Organization Unknown Address Unknown Procedures FILTER APPLIED:Only known Procedures with Onset Date within the last 5 years Procedure Date Procedure Provider Additional Inform ation Status ONCOLOGY COLORECTAL SCR (31483) Completed ASSAY OF FREE THYROXINE (19894) Completed FREE ASSAY (FT-3) (39186) Completed METABOLIC PANEL TOTAL CA (24128) Completed ASSAY THYROID STIM HORMONE (48111) Completed Encounters FILTER APPLIED:Only known Encounters with Admission Date within the last 5 years Encounter Location Admission Discharge Billing Code Consultant [facility] Out[facility] Ashlyn Nelson Outpatient Ashlyn Nelson
--- OUTSIDE RECORDS SUMMARY | 2024-07-02 07:59 | XMS_ITS | Encounter Summary ---
Author Organization [facility] Address [address] [place] [address] Care Team Providers Care Hog Confinement System Manager Name Role Phone Eva Nelson MD Primary Care Provider Encounter Details Date Type Department Care Team (Late st Contact Info) Description 09/12/2018 Abstract [facility] [place] [address] [phone] Jer Preciado MD [address] [id number] Social History Tobacco Use Types Packs/Day Years Used Date Smoking Tobacco: Never Smokeless Tobacco: Never Alcohol Use Standard Drinks/Week Comments No 0 (1 standard drink = 0.6 oz pur e alcohol) Comments No Sex and Gender Information Value Date Recorded Sex Assigned at Not on file Legal Sex Female 2:28 PM CDT Gender Identity Not on file Sexual Orientation Not on file documented as of this encounter Plan of Treatment Not on file documented as of this encounter Visit Diagnoses Not on filedocumented in this encounter Care Teams Hog Confinement System Manager Relationship Specialty Start Date End Date Eva Nelson MD [facility] [address] [place] [address] PCP - General Internal Medicine 04/14/18 documented as of this encounter
--- OUTSIDE RECORDS SUMMARY | 2024-07-02 07:59 | XMS_ITS | Clinical Summary ---
Author Organization [facility] Address [address] [facility] [place] [address] Care Team Providers Care Bsa/Aml Compliance Officer Name Role Phone No, Pcp REPRESENTATIVE GOVERNMENT RELATIONS Primary Care Provider Unavailabl e Allergies Active Allergy Reactions Criticality Noted Date Comments Metronidazole Benzoate 09/27/2016 Medications azithromycin (ZITHROMAX) 250 MG tablet Take two tablets by mouth once on Day 1, then take one tablet by mouth daily on Days 2-5. 6 tablet 09/27/2016 Active Social History Tobacco Use Types Packs/Day Years Used Date Smoking Tobacco: Never Comments No Sex and Gender Information Value Date Recorded Sex Assigned at Not on file Legal Sex Female 1:20 PM EDT Gender Identity Not on file Sexual Orientation Not on file Last Filed Vital Signs Vital Sign Reading Time Taken Comments Blood Pressure 122/70 09/27/2016 10:56 AM PDT Pulse 80 09/27/2016 10:56 AM PDT Temperature 36.7 C (98.1 F) 09/27/2016 10:56 AM PDT Respiratory Rate 13 09/27/2016 10:56 AM PDT Oxygen Saturation 97% 09/27/2016 10:56 AM PDT Inhaled Oxygen Concentration - - Weight 59 kg (130 lb) 09/27/2016 10:56 AM PDT Height - - Body Mass Index - - Plan of Treatment Health Maintenance Due Date Last Done Comments Colorectal Cancer: COLONOSCO PY Screening every 10 yrs (or Modifier) 1969 Depression: Screening Annual ly using PHQ-2/9 in Adults 18 yrs or above (or HM Modifier)([facility]) 1987 Hepatitis C Virus Infection in Adolescents and Adults: Screening (or Modifier) ([facility]) 1987 SDOH Screening Reminder: Eliza murcia for all adults ([facility]) 1987 Tobacco Smoking Cessation: i n Adults excluding Women: Behavioral and Pharmacotherapy Interventions ([facility]) 1987 Cervical Cancer Screenin 1-65 yrs of age (or Modifier) 1990 Cervical Cancer Screening: P ap every 3 yrs pts age 21-65 1990 Cervical Cancer: Pap Screeni ng with Modifier timing ([facility]) 1990 Cervical Cancer: hrHPV alone or with cotesting Pap for Pts 30-65yrs screening every 5yrs ([facility]) 1990 Colorectal Cancer Screening 45 -75 Yrs (or HM Modifier) 2014 Colorectal Cancer: FLEXIBLE SIGMOIDOSCOPY Screening every 5 yrs 2014 Colorectal Cancer: Fecal Immunochemical Test (FIT) Annually [facility] 2014 Colorectal Cancer: High-sens itivity gFOBT Screening Annually [facility] 2014 Colorectal Cancer: Stool Col oguard Screening every 3 yrs 2014 Colorectal Cancer:CT Colonog janie Screening every 5 yrs 2014 Lipid Screening: Every 5 yrs for Women aged 45+ (or HM Modifier) ([facility]) 2015 DTaP/Tdap/Td Vaccines ([facility]) (2 - Td or Tdap) 01/22/2016 01/21/2006 Breast Cancer: Screening Eliza ually age 50-74 yrs (or HM Modifier)([facility]) 2019 Zoster/Shingles Vaccine Seri es Screening: Adults aged 18+ yrs (or HM Modifiers)([facility]) (1 of 2) 2019 Flu Vaccination: Yearly for ages 18mos through 64 years (or Modifier)([facility]) 01/30/2024 COVID-19 Vaccine Screening: Initial Series and Booster Status ([facility]) (2023- season) 2024 Pneumococcal Vaccination Scr eening: Pts 0-19 & 19-64 yrs of age ([facility]) Aged Out No longer eligible b ased on patient's age to complete this topic Medical Devices Not on file Insurance [employer] Care Teams Bsa/Aml Compliance Officer Relationship Specialty Start Date End Date No, Pcp, REPRESENTATIVE GOVERNMENT RELATIONS N/A Do not use PCP - General 09/27/16
[2024-07-02] MEDS: 0.9 % SODIUM CHLORIDE 500 ML 500 ML 100 ML IV (08:00)
[2024-07-02 08:05] VITALS: BMI 26.0
[2024-07-02 08:15] VITALS: BP 134/82; PULSE 65; RESP 16; TEMP 36.6; O2SAT 96
[2024-07-02] MEDS: SODIUM CHLORIDE 0.9 % (FLUSH) 10 ML SYRINGE IVF (08:16)
--- NOTE | 2024-07-02 08:33 | W.PM.H&PU ---
History & Physical Update History & Physical Update H&P Reviewed and patient assessed: No changes noted
--- NOTE | 2024-07-02 08:34 | PM.PROC ---
Procedure Note Date Seen: 07/02/24 Date of procedure: 07/02/24 Will [facility] bill your pro fee for this procedure?: Yes Procedure: Preoperative diagnosis: 54 year-old with postmenopausal bleeding and mildly thickened endometrium on ultrasound Postoperative diagnosis: Same, submucosal fibroid Procedure: Hysteroscopy, Dilation and Curettage, hysteroscopic myomectomy using the Truclear incisor Anesthesia: Conscious sedation, paracervical block. Surgeon: Lucretia Quintero MD Supervisor Paste Plant: None Estimated blood loss: 30 mL IV Fluid: 400mL Specimen: Endometrial curettings to pathology. Findings: Exam under anesthesia: Uterus: Anteflexed position, less than less than 10 week sized, mobile, with no masses or nodularity palpable. Uterus sounded to 9 cm. No adnexal masses or nodularity palpable. On hysteroscopy: Multiple endometrial synechia with a submucosal, fundal, left fibroid measuring approximately 1.5 cm in diameter. Procedure: Noris was taken to the operating operating room more conscious sedation was found to be adequate. The patient was placed on in the dorsal lithotomy position and an exam under anesthesia was performed with findings stated above. She was then prepped and draped in a normal sterile manner. A bivalve speculum was placed in the vagina. The cervix appears nulliparous. Otherwise no abnormalities. The paracervical block was placed using 0.5% Marcaine, 5 mL was injected at the 4 and 8 o'clock positions on the cervix. The anterior lip of the cervix was grasped with a single-toothed tenaculum. The cervix dilated to Hegar 6. The uterus sounded to 9.5 cm. The Truclear hysteroscope was advanced into the uterus. A diagnostic hysteroscopy was performed with normal saline as the insufflation medium. Findings are stated above. The Truclear incisor, soft tissue mini, was then advanced through the camera. After the synechia were removed the submucosal fibroid was visualized. The camera was removed and changed to an 8 mm scope order to use the dense tissue TruClear incisor. The camera and dense tissue incisor were readvanced into the uterus. During this process the single-tooth tenaculum pulled through the anterior lip of the cervix so it was replaced. The curettage was performed with the incisor over an approximately probably 15 minutes. The incisor was then removed. The endometrial cavity appeared normal. Saline deficit at the end of the procedure 1200 mL. Total saline used 4700 mL. Three 0 Vicryl suture in a running manner followed by 1 suture of 3-0 Vicryl in a figure of 8 manner and silver nitrate were used for hemostasis on the cervix due to the laceration on the anterior lip of the cervix from the tenaculum pulling through the tissue. The hysteroscope, tenaculum and speculum were removed from the vaginal canal. The patient tolerated the procedure well. Sponge, lap and instrument counts were correct x2 at the end of the procedure. The patient was taken to the recovery area in stable condition. The patient received 30 mg IV Toradol at the end of the procedure Primary Care Physician: Dr. Eva Nelson
[2024-07-02] MEDS: BUPIVACAINE 0.5% 30 ML INJECTION (09:09)
[2024-07-02] MEDS: SILVER NITRATE APPLICATOR 1 EACH STICK..EA. TOPICAL ×2 (10:07)
[2024-07-02] MEDS: KETOROLAC 30 MG/ML inj IVP (10:09)
[2024-07-02 10:17] VITALS: BP 126/76; PULSE 68; RESP 16; TEMP 36.4; O2SAT 98
--- NOTE | 2024-07-02 10:21 | W.ANESCHARGE ---
Anesthesia Charges Start Date/Time Anesthesia Start Date: 07/02/24 Anesthesia Start Time: 08:55 Stop Date/Time Anesthesia Stop Date: 07/02/24 Anesthesia Stop Time: 10:20
[2024-07-02 10:30] VITALS: BP 115/76; PULSE 56; RESP 16; O2SAT 100
[2024-07-02 10:45] VITALS: BP 119/78; PULSE 54; RESP 16; O2SAT 100
[2024-07-02 11:00] VITALS: BP 123/85; PULSE 59; RESP 16; O2SAT 99
== END 2024-07-02 11:16 | disposition home or self-care (01) ==
LOC: OR 07:56
PROVIDERS: PCP Internal Medicine; Visit Provider Obstetrics & Gynecology
PROC: 0UDB8ZZ Extraction of Endometrium, Via Natural or Artificial Opening Endoscopic (ICD-10-PCS; CPT 58558; principal; 2024-07-02 09:15)
DX: D25.0 Submucous leiomyoma of uterus (principal); R93.89 Abnormal findings on diagnostic imaging of other specified body structures; N95.0 Postmenopausal bleeding
CPT/HCPCS: 58561; 00952; 88305; A9270; C1782; J0665; J1100; J1885; J2250; J2405; J2704; J3010; J7030

== ENCOUNTER 2024-10-30 08:05 | Outpatient (CLI) | payer OTHER, SELFPAY | END 2024-10-30 08:06 | disposition home or self-care (01) | LOC: NFLDREF 11-04 18:36 | PROVIDERS: PCP Internal Medicine; Referring Provider Internal Medicine; Visit Provider Internal Medicine | DX: E03.8 Other specified hypothyroidism (principal) | CPT/HCPCS: 80048; 84439; 84443; 84481 ==

== ENCOUNTER 2025-01-25 08:08 | Outpatient (CLI) | payer BC, SELFPAY ==
--- NOTE | 2025-01-25 08:15 | CRLHL7_ITS ---
For Patients: As a result of the Century Cures Act, medical imaging exams and procedure reports are released immediately into your electronic medical record. You may view this report before your referring provider. If you have questions, please contact your health care provider. INDICATION: BILATERAL SCREENING MAMMOGRAM, ASYMPTOMATIC 54 Y/O FEMALE COMPARISON: 01/17/2024, 01/04/2023, 12/08/2021 TECHNIQUE: Digital mammogram in CC and MLO projections including computer-aided detection (CAD) and tomosynthesis. BREAST COMPOSITION: The breasts are heterogeneously dense, which may obscure small masses. FINDINGS: No suspicious findings. ASSESSMENT: BI-RADS 1 Negative RECOMMENDATION: Annual screening mammogram. A lay language report of this examination will be provided to the patient. Dictated by: Izzy Luciano MD @ 01/26/2025 13:30:23 (Electronically Signed)
== END 2025-01-25 08:09 | disposition home or self-care (01) ==
LOC: MAMMO 08:12
PROVIDERS: PCP Internal Medicine; Visit Provider Internal Medicine
DX: Z12.31 Encounter for screening mammogram for malignant neoplasm of breast (principal); R92.333 Mammographic heterogeneous density, bilateral breasts
CPT/HCPCS: 77063; 77067